=== PATIENT | male | born 1990 | race Two or more races ===

== ENCOUNTER 2021-09-21 10:55 | Emergency (ER) | payer MEDICAID ==
[~2021-09-21] VITALS: Ht 177.8 cm; Wt 88.0 kg
[2021-09-21 12:06] VITALS: BP 123/87
[2021-09-21] MEDS ORDERED: LIDOCAINE HCL/PF 1% 10 MG/ML 5ML VIAL INFIL ONE (13:00)
[2021-09-21] MEDS ORDERED: BACITRACIN ZINC OINT UDPKT TOP ONE (13:00)
[2021-09-21] MEDS ORDERED: TETANUS, DIPHTHERIA, PERTUSSIS VAC/PF 0.5ML (>10YR OLD) IM ONE (13:00)
[2021-09-21] MEDS ORDERED: CEPH500C2 MT (14:00)
[2021-09-21] MEDS ORDERED: IBUP-2030 MT (14:00)
== END 2021-09-21 14:22 | disposition home or self-care (01) ==
LOC: ER 10:55
DX: L02.213 Cutaneous abscess of chest wall (principal)
CPT/HCPCS: 10060; 90471; 90715; 99283; J3490; Z7610

== ENCOUNTER 2021-09-23 08:03 | Emergency (ER) | payer MEDICAID ==
[~2021-09-23] VITALS: Ht 175.3 cm; Wt 88.0 kg
[~2021-09-23 08:03] MED LIST: CEPH500C2 MT; IBUP-2030 MT
[2021-09-23 08:05] VITALS: BP 155/75
[2021-09-23] MEDS ORDERED: DOXY100C5 MT (08:32)
== END 2021-09-23 08:55 | disposition home or self-care (01) ==
LOC: ER 08:03
DX: S31.119D Laceration without foreign body of abdominal wall, unspecified quadrant without penetration into peritoneal cavity, subsequent encounter (principal); X58.XXXD Exposure to other specified factors, subsequent encounter
CPT/HCPCS: 99281